=== PATIENT | female | born 1975 | race Caucasian/White ===

== ENCOUNTER 2017-01-29 15:28 | Emergency (ER) | payer OTHER ==
[~2017-01-29] VITALS: Ht 162.6 cm; Wt 95.5 kg
[~2017-01-29 15:28] MED LIST: ALBU8.5H4 IH; AMIT25TA26 PO; HYDR-3090 PO; IND20; LEVO175T2 PO; PRO20 PO; [UNRECOGNIZED DRUG - CODE] PO
[2017-01-29 15:35] VITALS: BP 122/73; PULSE 61; RESP 10; O2SAT 99
--- NOTE | 2017-01-29 16:01 | ED.REPORT ---
HPI-Back Pain 40 and Over Date of Service Jan 29, 2017 ED Provider: Doc,Ed MD History of Present Illness: went to kneel while painting felt a pop in back and fell on porch . unable to stand. after a while she crawled to the house. has had back issues previous , denies bowel or bladder issues, fine yesterday. primary care is merle crocker 10/26 given fentayl in ambulance. pain shooting up left side. denies drug use or hx of use Nursing Notes Stated Complaint: BACK PAIN Chief Complaint: Back Pain or Injury Nursing Notes Reviewed: Yes Allergies: Coded Allergies: No Known Allergies (Verified , 11/18/03) Scheduled Albuterol-Expunged Drug, Do Not Renew! (Albuterol-Expunged Drug, Do Not Renew!) 8.5 Gm Hfa.aer.ad 2 PUFFS IH PRN Amitriptyline-Expunged Drug, Do Not Renew! (Amitriptyline-Expunged Drug, Do Not Renew!) 25 Mg Tablet 10 MG PO PRN take 2-4 tabls HS prn FLUoxetine-Expunged Drug, Do Not Renew! (FLUoxetine-Expunged Drug, Do Not Renew! ) 20 Mg Capsule 40 MG PO DAILY Levothyroxine-Expunged Drug, Do Not Renew! (Levoxyl-Expunged Drug, Do Not Renew! ) 175 Mcg Tablet 150 MG PO DAILY Orphenadrine Citrate (Norflex) 100 Mg Tablet.sa 100 MG PO BID Propranolol-Expunged Drug, Do Not Renew! (Propranolol-Expunged Drug, Do Not Renew!) 20 Mg Tab DAILY Miscellaneous Medications Hydrocod/APAP-Expunged, Do Not Renew! (Hydrocod/APAP 5/300-Expunged, Do Not Renew!) 1 Each Tablet 1 EACH PO 1-2 every 4 hrs prn General Time Seen by MD: 16:00 Chief Complaint Back pain (lower) Hx Obtained From: Patient Sudden in Onset?: Yes Caused by: Spontaneous/no mechanism Past Medical History Past Medical History Reports: Asthma (albuterol last use last week) Past Surgical History Reports: , Hysterectomy Smoking History Never Smoker Social History Alcohol Use: 3-5 per day Drug Use: Denies drug use Occupation work at [employer] 01/29/2017 Ambulatory Status Independent Review of Systems Basic Review of Systems Eyes: Vision NL, No discharge Skin: No bruising, No rash, No itch Physical Exam Initial Vital Signs Vital Signs (First) Date Time Temp Pulse Resp B/P Pulse Ox O2 Delivery O2 Flow Rate FiO2 01/29/17 15:35 36.8 61 10 122/73 99 Room Air Initial VS: Reviewed, Vital signs normal Head / Eyes: Atraumatic, Normocephalic, PERRL Extremities: Vascular intact, Neuro intact, No swelling, No tenderness Psychiatric: Mood/affect normal, Behavior normal, Normal thought content General/Constitutional: Awake, Alert, Well appearing, Well developed, Well hydrated, Well nourished, Cooperative, Not toxic appearing Distress / Hydration: Positive: Distress mild Respiratory / Chest: Atraumatic, Breath sounds NL, Breath sounds = bilat Cardiovascular: Heart rate NL, Regular rhythm, Heart sounds NL, No gallop, No murmurs, No rubs Abdomen: Atraumatic, Soft, Non-tender Neurologic: Oriented X3, Speech NL, No motor deficits, No sensory deficits sensation equal bilateral from hips to feet. no muscle weakness in either leg. Able to flex and extend against resistance at hips, knees legs ankle and great toes Lower Extremity / Pelvis / MS: Atraumatic, Inspection NL, Full range of motion , No swelling, Non-tender, No erythema, Neurologic intact, Vascular intact, Tendon function NL Interpretation & Diagnostics Lab Results Interpretation Test 01/29/17 16:00 Hold Purple Top Tube Received (Received) Hold Blue Top Tube Received (Received) Hold [place] Top Tube Received (Received) Re-Eval/Medical Decision Med Decision/Clinical Course 41 year old female presents with sudden onset of back pain whiched occured while she was kneeling down to paint the trim on the deck. She was almost there and felt a pop. pain has been intense since then. No sign of any infection or caudia equina Discharge & Departure Impression: Primary Impression: Lumbosacral strain Encounter type: initial encounter Qualified Code: S39.012A - Strain of muscle, fascia and tendon of lower back, initial encounter Disposition: Home Patient Instructions: Low Back Strain (ED) Additional Instructions: The exam is reassuring. We have been able to get your pain down to 0 which is better than expected. Continue with prednisone 40 mg daily for 5 days. Use percocet 1 up to 2 times a day as needed for severe unrelenting pain. Can use ativan as a muscle relaxer up to 2 times a day. Movement is so important, gentle walking is best. Please follow with Merle later this week. Note for off work Monday, Monday and Monday. Referrals: Merle Crocker PA-C (PCP) EDSupervising Provider for APC: Ben Mckeon DO copies to: Merle Crocker PA-C, Sue ARNP Jan 29, 2017 16:01
[2017-01-29] MEDS ORDERED: oxyCODONE-Acetamin 10-325 mg Tablet PO ONE (16:10)
[2017-01-29] MEDS ORDERED: MethylprednisoLONE Sodium Succinate 40 mg/mL Inj IVPUSH ONE (16:10)
[2017-01-29] MEDS ORDERED: Ondansetron 2 mg/mL 2 mL Inj IVPUSH ONE (17:30)
[2017-01-29] MEDS ORDERED: _LORazepam 1 mg Tablet PO PRN (17:55)
[2017-01-29] MEDS ORDERED: _oxyCODONE/APAP 5-325 mg Tablet PO PRN (17:55)
[2017-01-29 18:12] VITALS: BP 104/60; PULSE 72; RESP 12; O2SAT 96
[2017-01-29 18:41] VITALS: BP 104/60; PULSE 72; RESP 12; O2SAT 96
== END 2017-01-29 18:43 | disposition home or self-care (01) ==
LOC: EDUNIT# 15:28 → EDBD 15:28 → SED 15:28
DX: S39.012A Strain of muscle, fascia and tendon of lower back, initial encounter (principal); X50.1XXA Overexertion from prolonged static or awkward postures, initial encounter; Y93.89 Activity, other specified; Y92.018 Other place in single-family (private) house as the place of occurrence of the external cause; Y99.8 Other external cause status; J45.909 Unspecified asthma, uncomplicated
CPT/HCPCS: 96374; 96375; 99284; J1885; J2060; J2405; J2920